=== PATIENT | male | born 1985 | race American Indian/Alaskan Native ===

== ENCOUNTER 2016-12-07 01:46 | Emergency (ER) | payer SELFPAY ==
[2016-12-07] MEDS ORDERED: NAPROSYN PO ONE (05:15)
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
[2016-12-07 06:03] VITALS: BP 130/70
== END 2016-12-07 06:03 | disposition home or self-care (01) ==
LOC: ED 01:46
DX: M54.5 Low back pain (principal); F17.210 Nicotine dependence, cigarettes, uncomplicated
CPT/HCPCS: 99282